=== PATIENT | male | born 1950 | race Caucasian/White ===

== ENCOUNTER → 2017-04-13 | Outpatient (CLI) | payer BC ==
[~2017-04-13] MED LIST: ALLOPURINOL100 MG PO; ASPIRIN81 M1 PO; AXIRON T; LIPITOR10 MG PO; LOPRESSOR25 MG PO; XARE15TA PO; XARELTO10 PO
== END | disposition home or self-care (01) ==
LOC: CARD 03:09
DX: I10 Essential (primary) hypertension (principal); E78.2 Mixed hyperlipidemia; R55 Syncope and collapse; I48.92 Unspecified atrial flutter; I34.0 Nonrheumatic mitral (valve) insufficiency

== ENCOUNTER → 2018-05-20 | Outpatient (CLI) | payer MEDICARE, OTHER | END | disposition home or self-care (01) | LOC: US 04-30 09:30 | DX: Z00.01 Encounter for general adult medical examination with abnormal findings (principal); I77.819 Aortic ectasia, unspecified site ==

== ENCOUNTER → 2018-07-02 | Outpatient (CLI) | payer MEDICARE, OTHER ==
--- NOTE | ~2018-07-02 | HM ---
[place], [place] HOLTER MONITOR REPORT NAME: THUAN MAY UNIT #: [id number] ROOM: DOCTOR: MARC KHOURY MD BIRTHDATE: [birth year] DOS: 07/02/2018 REFERRING PHYSICIAN: Dr. Flaquito Meng. INDICATION: Atrial fibrillation. FINDINGS: 1. The patient underwent a 48-hour Holter monitor. The baseline and predominant rhythm was atrial fibrillation. The average heart rate was 88 beats per minute with a minimal heart rate of 45 beats per minute with a maximum heart rate 48 beats per minute. 2. Supraventricular activity: None aside from baseline atrial fibrillation. 3. Ventricular activity: The patient was noted to have 6489 PVCs representing 2.6 percent burden. 4. No significant blocks, pauses, or bradycardia aside from a 2.5 second R-R interval in the early a.m. hours of 04:18 a.m. 5. No significant diary entries. SUMMARY OF FINDINGS: 1. Baseline atrial fibrillation rhythm with average heart rate of 88 beats per minute. 2. Frequent PVCs. 3. Longest R-R interval was 2.5 seconds. MARC KHOURY MD CM:HOLTER:HOLTER MONITOR REPORT [id number] MARC KHOURY MD
== END | disposition home or self-care (01) ==
DX: I48.1 Persistent atrial fibrillation (principal)

== ENCOUNTER → 2022-10-28 | Outpatient (CLI) | payer MEDICARE, OTHER | END | disposition home or self-care (01) | LOC: CARD 00:19 | PROVIDERS: ATTEND Family Medicine | DX: I48.0 Paroxysmal atrial fibrillation (principal) ==

== ENCOUNTER → 2024-04-07 | Outpatient (CLI) | payer MEDICARE, OTHER | END | disposition home or self-care (01) | LOC: RESCLI 00:07 | PROVIDERS: ATTEND Family Medicine | DX: I48.91 Unspecified atrial fibrillation (principal); I10 Essential (primary) hypertension; Z98.890 Other specified postprocedural states; Z82.49 Family history of ischemic heart disease and other diseases of the circulatory system; Z79.899 Other long term (current) drug therapy; Z79.01 Long term (current) use of anticoagulants ==